=== PATIENT | female | born 1990 | race Caucasian/White ===

== ENCOUNTER 2019-01-25 06:37 | Day surgery (SDC) | payer OTHER ==
[2019-01-25] MEDS ORDERED: Labetalol 100 MG/20 ML MDV IV ONE (06:38)
[2019-01-25] MEDS ORDERED: fentaNYL 100 MCG/2 ML SDV IV ONE (06:38)
[2019-01-25] MEDS ORDERED: HYDROmorphone 2 MG/ML SDV IV ONE (06:38)
[2019-01-25] MEDS ORDERED: Ondansetron 4 MG/2 ML SDV IVPUSH ONE (06:38)
[2019-01-25] MEDS ORDERED: Rocuronium 100 MG/10 ML MDV IV ONE (06:38)
[2019-01-25] MEDS ORDERED: Dexamethasone 4 MG/ML 5 ML MDV IVPUSH ONE (06:38)
[2019-01-25] MEDS ORDERED: Glycopyrrolate 0.2 MG/ML 5 ML MDV IV ONE (06:38)
[2019-01-25] MEDS ORDERED: Propofol 200 MG/20 ML SDV IV ONE (06:38)
[2019-01-25] MEDS ORDERED: Lactated Ringers 1,000 ML IV ONE (06:38)
[2019-01-25] MEDS ORDERED: Neostigmine Methylsulfate 10 MG/10 ML MDV IVPUSH ONE (06:38)
[2019-01-25] MEDS ORDERED: Midazolam 1 MG/ML 2 ML SDV IV ONE (06:38)
[2019-01-25] MEDS ORDERED: Sodium Chloride 0.9% 10 ML Syringe FLUSH PRN (06:45)
[2019-01-25] MEDS ORDERED: Lactated Ringers 1,000 ML IV SCH (06:45)
[2019-01-25] MEDS ORDERED: Acetaminophen 500 MG Tab PO ONE (07:04)
[2019-01-25] MEDS ORDERED: Gabapentin 300 MG Cap PO ONE (07:04)
[2019-01-25] MEDS ORDERED: ceFAZolin 2 GM in Premix Bag 1 BAG IV ONE (07:30)
[2019-01-25] MEDS ORDERED: Bupivacaine 0.5% 30 ML SDV INJECT ONE ×2 (08:09→08:36)
--- NOTE | 2019-01-25 08:18 | PCM.PN ---
- General Info Date of Service: 01/25/19 - Review of Systems Systems Review Comment:: 28 y/o female here for cholecystectomy because of symptomatic gallbladder disease. She is medically stable to proceed. The proposed procedure has again been discussed with the patient. Expectations and instructions reviewed. Questions answered and she agrees to proceed. - Patient Data Vitals - Most Recent: Last Vital Signs Temp 98.7 F 01/25/19 07:12 Pulse 82 01/25/19 07:12 Resp 15 01/25/19 07:12 BP 138/94 H 01/25/19 07:12 Pulse Ox 99 01/25/19 07:12 Weight - Most Recent: 240 lb Lab Results Last 24 Hours: Laboratory Results - last 24 hr 01/25/19 Range/Units 07:06 Urine HCG, Qual Negative (NEGATIVE) Med Orders - Current: Current Medications Lactated Ringer's (Ringers, Lactated) 1,000 mls @ 125 mls/hr IV ASDIRECTED ELIAN Last Admin: 01/25/19 07:29 Dose: 125 mls/hr Sodium Chloride (Saline Flush) 10 ml FLUSH ASDIRECTED PRN PRN Reason: Keep Vein Open Discontinued Medications Acetaminophen (Tylenol Extra Strength) 1,000 mg PO ONETIME ONE Stop: 01/25/19 07:05 Last Admin: 01/25/19 07:39 Dose: 1,000 mg Bupivacaine HCl (Marcaine 0.5%) 10 ml INJECT .STK-MED ONE Stop: 01/25/19 08:10 Last Admin: 01/25/19 08:09 Dose: 10 ml Gabapentin (Neurontin) 300 mg PO ONETIME ONE Stop: 01/25/19 07:05 Last Admin: 01/25/19 07:39 Dose: 300 mg Cefazolin Sodium/Dextrose 2 gm (/ Premix) 50 mls @ 100 mls/hr IV ONETIME ONE Stop: 01/25/19 07:59 Last Admin: 01/25/19 08:14 Dose: 100 mls/hr - Problem List Review Problem List Initiated/Reviewed/Updated: Yes - My Orders Last 24 Hours: My Active Orders 01/24/19 Dinner Nothing Per Oral Diet [DIET] 01/25/19 06:45 Patient Status [ADT] Routine Patient to Empty Bladder [RC] ASDIRECTED RT Incentive Spirometry [RC] ASDIRECTED Verify Patient Consent Obtain [RC] ASDIRECTED Lactated Ringers [Ringers, Lactated] 1,000 ml IV ASDIRECTED Sodium Chloride 0.9% [Saline Flush] 10 ml FLUSH ASDIRECTED PRN Peripheral IV Insertion Adult [OM.PC] Routine Sequential Compression Device [OM.PC] Routine - Assessment Assessment:: Symptomatic gallbladder disease - Plan Plan:: cholecystectomy
--- NOTE | 2019-01-25 09:47 | PCM.OPNOTE ---
- General Post-Op/Procedure Note Date of Surgery/Procedure: 01/25/19 Operative Procedure(s): Cholecystectomy Findings: Multiple adhesions to gallbladder Structures otherwise appear normal Pre Op Diagnosis: Biliary Dyskinesia Post-Op Diagnosis: Same Anesthesia Technique: General ET Tube Primary Surgeon: James Monroy Pathology: Gallbladder Output, Urine Amount: 0 EBL in mLs: 20 Complications: None Condition: Good
[2019-01-25] MEDS ORDERED: diphenhydrAMINE 50 MG/ML SDV IVPUSH ONE (10:35)
[2019-01-25 11:18] VITALS: BP 134/84; PULSE 62
--- NOTE | 2019-01-25 11:23 | OR ---
DATE OF OPERATION: 01/25/2019 SURGEON: James Monroy MD PREOPERATIVE DIAGNOSIS: Biliary dyskinesia. POSTOPERATIVE DIAGNOSIS: Biliary dyskinesia. OPERATION PERFORMED: Laparoscopic cholecystectomy. INDICATIONS FOR SURGERY: This 28-year-old female has developed symptoms of postprandial right upper quadrant abdominal pain. She is noted to have a low gallbladder ejection fraction, which was felt to be responsible for her symptoms and she comes for cholecystectomy. FINDINGS: The gallbladder has multiple fatty tissue adhesions to its undersurface. Yet, and the adjacent liver otherwise appear normal. No other intraabdominal abnormalities were identified. PROCEDURE IN DETAIL: The patient was taken to the operating room. She was given general endotracheal anesthesia, and the abdomen was sterilely prepped and draped. A supraumbilical stab wound incision was made. Through this, a Veress needle was inserted and pneumoperitoneum via this needle to a pressure of 15 mmHg was achieved with carbon dioxide. The Veress needle was then replaced with a 12 mm trocar into which the 5 mm variable angled laparoscopic camera was inserted. Under direct visualization, 5 mm trocars were placed in the subxiphoid midline and in 2 areas of the right abdomen. All trocar sites were infiltrated with Marcaine prior to incision. Intra-abdominal inspection was carried out and attention was turned to the gallbladder. It was secured with grasping forceps placed through the lateral trocars and retracted superiorly and anteriorly. Fatty tissue adhesions to the undersurface of the gallbladder are carefully taken down until the lower portion of the gallbladder is exposed. Additional dissection then identified the cystic duct and cystic artery. The cystic artery was clearly identified and exposed and then doubly clipped and divided. The triangle of Calot was completely cleared, and the cystic duct clearly and positively identified including its junction with the gallbladder. The cystic duct was double doubly clipped and divided near the gallbladder after it was milked, and the cystic duct was divided near the gallbladder with great care being used to avoid any injury or compromise to the common bile duct. The gallbladder was then dissected free from the undersurface of the liver using the hook cautery device. Once the gallbladder been completely freed, it was extracted without difficulty through the umbilical trocar site. Reinspection of the gallbladder bed was carried out, and the area was copiously irrigated. With no sign of bleeding or any other complication, the trocars were removed under direct visualization and the pneumoperitoneum was evacuated. The fascia of the umbilical trocar site was closed with a [id number] 0 Vicryl suture. Wounds were irrigated with Betadine and saline solution. Skin incisions were approximated with interrupted 4-0 Vicryl in a subcuticular stitch. Steri-Strips and benzoin were applied, followed by antibiotic ointment and sterile dressings. The patient was awakened, extubated, and taken from the operating room in satisfactory condition. ESTIMATED BLOOD LOSS: 20 mL. COMPLICATIONS: None. PROGNOSIS: Good. /[id number] DOMINICK/ELPIDIO
== END 2019-01-25 11:45 | disposition home or self-care (01) ==
LOC: FB.SDS 06:37
PROVIDERS: ATTEND Surgery
DX: K82.8 Other specified diseases of gallbladder (principal)
CPT/HCPCS: 81025; 88304; 94150; A9270-GY; J0690; J1100; J1170; J2001; J2250; J2405; J2704; J2710; J3010; J3490; J7120